=== PATIENT | female | born 1955 | race Caucasian/White ===

== ENCOUNTER 2018-09-27 05:52 | Observation (INO) ==
[2018-09-27] MEDS ORDERED: MORPHINE SULFATE 4 MG/1 ML IVP ONE (06:11)
[2018-09-27] MEDS ORDERED: FAMOTIDINE 20 MG/2 ML VIAL IVP ONE (06:11)
[2018-09-27] MEDS ORDERED: Sodium Chloride 0.9% 1,000 ML PRIMARY IV ONE (06:11)
[2018-09-27] MEDS ORDERED: ONDANSETRON 4 MG/2 ML VIAL IVP ONE ×2 (06:11→11:04)
[2018-09-27 06:55] LABS: BASOPHILS # (AUTO) 0.02 10*3/UL; BASOPHILS % (AUTO) 0.2 % (0-1); EOSINOPHILS # (AUTO) 0.02 10*3/UL; EOSINOPHILS % (AUTO) 0.2 % (0-8); Hematocrit [HCT] 50.6 % (37.0-47.0); Hemoglobin [HGB] 16.9 g/dL (12.0-16.0); LYMPHOCYTES # (AUTO) 1.06 10*3/uL; MEAN CORPUSCULAR HEMOGLOBIN 29.5 PG (27-31); MEAN CORPUSCULAR HGB CONC 33.4 g/dL (33-37); MEAN CORPUSCULAR VOLUME 88.5 FL (81-99); MEAN PLATELET VOLUME 10.1 FL (7.4-12.2); MONOCYTES # (AUTO) 0.31 10*3/UL (0.3-0.8); MONOCYTES % (AUTO) 2.6 % (5-15); NEUTROPHILS # (AUTO) 10.55 10*3/UL; RED BLOOD COUNT 5.72 10^6/uL (4.20-5.40)
[2018-09-27 07:01] LABS: BUN/CREATININE RATIO 17.5 (6-20); SERUM ALBUMIN 4.9 g/dL (3.5-4.8)
[2018-09-27 07:04] LABS: PLATELET MORPHOLOGY COMMENT NORMAL MORPHOLOGY (NORM); RBC MORPHOLOGY COMMENT NORMAL MORPHOLOGY (NORM); WBC MORPHOLOGY COMMENT NORMAL MORPHOLOGY (NORM)
--- NOTE | 2018-09-27 08:12 | DI ---
INDICATION: Abdominal pain TECHNIQUE: Multiple, contiguous axial cuts of the abdomen and pelvis are obtained from the lung bases to the ischial tuberosities before and following the administration of 75 mL Isovue 300 IV contrast. Sagittal and coronal reformatted images are available. COMPARISON: None FINDINGS: The lung bases are clear. There is a small sliding-type hiatal hernia. There is cholelithiasis with mild pericholecystic fat stranding and fluid. The common bile duct is normal in caliber. Low attenuation of liver is consistent with steatosis. The spleen, pancreas, and adrenal glands are unremarkable. The kidneys enhance symmetrically. There is no hydronephrosis or perinephric stranding. Mild aortoiliac atherosclerosis is not associated with aneurysm. There is no adenopathy. The appendix is normal. There is no evidence of bowel obstruction. There is colonic diverticulosis without evidence of acute diverticulitis. Uterus and urinary bladder are unremarkable. There are no acute osseous findings. There is grade 1 anterolisthesis of L4 on L5 secondary to facet arthropathy. IMPRESSION: 1. Cholelithiasis with mild pericholecystic fat stranding and fluid, concerning for acute cholecystitis. Clinical/sonographic correlation is recommended. 2. Colonic diverticulosis without evidence of acute diverticulitis.
[2018-09-27 08:48] LABS: BILIRUBIN,URINE NEGATIVE (NEG); CLARITY,URINE Slightly Cloudy (CLEAR); COLOR,URINE YELLOW (Y); GLUCOSE, URINE (UA) NEGATIVE (NEG); OCCULT BLOOD,URINE Trace-intact (NEG); PH,URINE 8.5 (5.0-8.5); PROTEIN,URINE NEGATIVE (NEG); UROBILINOGEN,URINE 0.2 EU/dL (0.2)
[2018-09-27 09:00] LABS: BACTERIA,URINE FEW; RBC,URINE 0-1 /hpf; SQUAMOUS EPITHELIAL CELL,UR FEW; URINE CASTS MODERATE; URINE SAMPLE TYPE CLEAN CATCH URINE
--- NOTE | 2018-09-27 09:01 | PDOC ---
Abdomen/Flank HPI - General Chief Complaint: Abdomen Pain Stated Complaint: UPPER ABDOMINAL PAIN Date Seen by Provider: 09/27/18 Time Seen by Provider: 06:05 Source: POSITIVE: Patient, Spouse Exam Limitations: POSITIVE: No limitations Nurse's Notes Reviewed & Considered: Yes - History of Present Illness Initial Comments: The patient is a 63-year-old female, who is brought to the emergency room by her . Patient states that around 7 PM she ate a turkey and cheese sandwich with hart and about an hour later developed right upper quadrant abdominal pain. She also had one or 2 episodes of vomiting around 1 AM. Patient has not had any abdominal surgery except for tubal ligation. She thinks that maybe she was running a fever last night, but did not take her temperature. No diarrhea. Patient is on no medications and denies any medical history except having had a surgical procedure on her left knee. Body Location Affected: REPORTS: Abdomen Timing: REPORTS: Abrupt, Improved (Patient states she feels somewhat better now than she did earlier this morning) Duration: <24 hours Severity: Moderate Quality: REPORTS: "Pain" Abdominal Pain Onset Location: REPORTS: RUQ, Epigastric Abdominal Pain Radiation: REPORTS: No radiation Context: REPORTS: Other (Onset one hour after eating). DENIES: None, Activity, Bending, Coughing, Fall, Lifting, Near Fall, Rest, Sitting, Sleep, Standing, Turning, Emotional stress, Camping, Bad Food, Out of Country Travel, Recent Surgery, Recent Trauma Modifying Factors: improves with: Vomiting Associated Symptoms: REPORTS: Nausea Similar Symptoms Previously: No Recent Care Received: REPORTS: Denies Any Prior Injuries Related to Current Complaint?: No - Patient Home Medications Home Medications: Home Medications NK 09/27/18 - Patient Allergies Allergies/Adverse Reactions: Allergies 3 Allergy/AdvReac Type Severity Reaction Status Date / Time No Known Allergies Allergy Verified 09/27/18 05:59 Past Medical History - heen HEENT History: Denies History Cardiovascular History: Denies History Respiratory History: Denies History Gastrointestinal History: Denies History Genitourinary History: Denies History Endocrine History: Denies History Musculoskeletal History: Denies History Prosthesis or Implant: No Neurological History: Denies History Blood Disorders: Denies History Psychiatric History: Denies History History of Sexually Transmitted Diseases: No Female Reproductive History: Tubal Ligation Obstetrical History: Denies History Cancer History: Denies History In Past Year Been Physically Harmed or Verbally Threatened: No History of MDRO: No History of Other Communicable Diseases: No Tobacco Use: Never Smoker Alcohol Use: Rarely In the Past 12 Months, Have Used or Abuse Any Substance: None Previous Surgical History: Yes Type / Date of Surgery: LEFT KNEE POST FRACTURE. TUBAL LIGATION Significant Family History: No pertinent family hx Past Medical History Reviewed: Reviewed - No Changes ROS - Limitations ROS Limitations: No Limitations Constitution: REPORTS: Denies Symptoms Cardiovascular: REPORTS: Denies Cardiac Symptoms Respiratory: REPORTS: Denies Resp Symptoms Neurological: REPORTS: Denies Neuro Symptoms Gastrointestinal: REPORTS: Abdominal Pain, Nausea, Vomitting Endocrine: REPORTS: Denies Symptoms Musculoskeletal: REPORTS: Denies MS Symptoms Genitourinary: REPORTS: Denies Symptoms Eyes: REPORTS: Denies Symptoms ENT: REPORTS: Denies Symptoms Skin: REPORTS: Denies Skin Symptoms Lympathic: REPORTS: Denies Lympathic Symptoms Immunologic: POSITIVE: Denies Symptoms Psychiatric: POSITIVE: Denies Psych Symptoms Abdominal/Flank Pain PE - General Appearance General Appearance: POSITIVE: Alert, Cooperative, No Evidence of Trauma, Mild Distress. NEGATIVE: No Acute Distress - HEENT HEENT: POSITIVE: Head Inspection Nml, Eyes Inspection Nml, Ears Inspection Nml, Nose Inspection Nml, Oral/Dental Inspect. Nml, Pharynx Inspect. Nml, PERRL, EOMI - Neck Neck: POSITIVE: Normal Inspection, No Apparent Injury - Respiratory Respiratory: POSITIVE: No Respiratory Distress, Breath Sounds Normal, Chest Non- Tender - Cardiovascular Cardiovascular: POSITIVE: Regular Rate and Rhythm, Heart Sounds Normal, Equal Pulses, Strong Pulses Peripheral Pulses: Radial (R): 2+, Radial (L): 2+ - Chest Chest: POSITIVE: Non Tender - Abdomen Abdomen: Soft: (All Quadrants), Normal Bowel Sounds: (All Quadrants), Denies Tenderness: (LLQ), (RLQ), (LUQ), No Splenomegaly: (All Quadrants), No Hepatomegaly: (All Quadrants), No Guarding: (All Quadrants), No Rebound: (All Quadrants), No Palpable Pulse: (All Quadrants), No Palpabale Mass: (All Quadrants), No Distention: (All Quadrants), No Rigidity: (All Quadrants), Tenderness Noted: (RUQ) Additional Abdominal Details: Abdominal examination shows bowel sounds to be active. Patient does have some pain on palpation right upper quadrant, without masses, organomegaly or rebound. - Back Back: POSITIVE: Normal Inspection. NEGATIVE: CVA Tenderness (R), CVA Tenderness (L) - Skin Skin: POSITIVE: Intact, Normal For Race, Warm, Dry, No Rash - Extremities Extremity: Non-Tender: (All Extremities), Normal ROM: (All Extremities), Normal Inspection: (All Extremities) - Neurological Neurological: POSITIVE: Affect Apporpriate, Oriented X3, cutter gas Normal As Tested, Motor Normal, Sensation Normal - Psychological Psychiatric: POSITIVE: Affect Appropriate, Mood Appropriate Images - Complete Complete: 1 - Area of described pain Abdomen Progress - Results Reviewed by me Xrays/CTs/US Reviewed by me: Yes Discussed with Radiologist: Yes Radiology Findings: CT scan abdomen and pelvis with IV contrast read as showing cholelithiasis with mild paricholecystic fat stranding and fluid compatible with cholecystitis CBC and BMP: 09/27/18 06:30 09/27/18 06:30 Lab Results:: Laboratory Results 3 09/27/18 09/27/18 06:30 06:30 WBC 11.98 H RBC 5.72 H Hgb 16.9 H Hct 50.6 H MCV 88.5 MCH 29.5 MCHC 33.4 RDW Std Deviation 41.2 RDW Coeff of Fernando 12.7 Plt Count 251 MPV 10.1 Immature Gran % (Auto) 0.2 Neut % (Auto) 88.0 H Lymph % (Auto) 8.8 L Maverick % (Auto) 2.6 L Eos % (Auto) 0.2 Baso % (Auto) 0.2 Immature Gran # (Auto) 0.02 Neut # (Auto) 10.55 Lymph # (Auto) 1.06 Maverick # (Auto) 0.31 Eos # (Auto) 0.02 Baso # (Auto) 0.02 WBC Morphology Comment Normal morphology Plt Morphology Comment Normal morphology RBC Morph Comment Normal morphology Sodium 145 Potassium 4.0 Chloride 107 Carbon Dioxide 30 Anion Gap 8 BUN 21 Creatinine 1.2 Estimated GFR 45 BUN/Creatinine Ratio 17.50 Glucose 143 H Calculated Osmolality 304.0 H Calcium 10.6 Total Bilirubin 1.5 H AST 38 ALT 28 Alkaline Phosphatase 84 Total Protein 8.6 H Albumin 4.9 H Globulin 3.7 Albumin/Globulin Ratio 1.30 Amylase 59 Lipase 225 - Patient's Progress Pain Medication Addressed: POSITIVE: Yes (Morphine sulfate, 4 mg IV) School/Work Release Addressed: POSITIVE: Not Applicable Re-examine Time: 08:30 Re-Examine Comment: Patient hydrated with a liter of normal saline and was given Zofran 4 mg IV for nausea. She was also given 4 mg morphine sulfate for pain and 20 mg of famotidine. Patient states she feels better. Laboratory results and CT scan results discussed with patient. Since we have evidence radiographically of cholecystitis, I did discuss the case with surgeon furnace combustion tester, Dr. Estrella, who will come to the emergency room to further evaluate and treat. Patient kept nothing by mouth pending surgical consultation. Status: POSITIVE: Improved, Re-Examined - Consult Consult (If Yes, Name of Consulting MD & Time Called): Yes (Dr. Estrella, surgeon, [id number]) Consulting MD will see pt:: POSITIVE: In ED Counseled: POSITIVE: Patient, Family, RE: Lab Results, RE: Radiology Results, RE : DX, RE: Need for F/U Patient Care Time - Estimated PCT Patient Care Time (In Minutes): 55 Vital Signs - Recent Vital Signs Vital Signs: Vital Signs (Last 8 hours) Temp Pulse Resp BP Pulse Ox 09/27/18 05:53 97.7 F 110 H 18 171/110 92 - VS Reviewed Vital Signs Reviewed: Yes Discharge Clinical Impression: Abdominal pain, Cholecystitis Discharge Disposition: Other (Care transferred to Dr. Estrella, surgeon, who will evaluate patient in the emergency room) Condition: Stable Follow Up With: NONE,NONE [Primary Care Provider] - Care Transferred To: Dr. Estrella, surgeon, [id number]
[2018-09-27] MEDS ORDERED: Ertapenem Inj 1 GM in Sodium Chloride 0.9% 100 ML IV SCH ×2 (11:00→11:21)
[2018-09-27] MEDS ORDERED: Lactated Ringers 1,000 ML PRIMARY IV SCH ×2 (11:00→11:21)
[2018-09-27] MEDS ORDERED: Nasal Sanitizer POPSWAB ampule 3 AMP (Nozin) PREOP DOSE ENOS SCH ×2 (11:00→11:21)
--- NOTE | 2018-09-27 11:01 | CONSULT ---
Consult Note - Consult Consult Date: 09/27/18 Reason for Consult: PreOp Consulation : General Surgery Requesting Physician: Dr. Shukla Primary Care Provider: NONE NONE - History of Present Illness History of Present Illness: The patient is a 63-year-old female who reports last night about 7 PM she ate a turkey, cheese, and mayonnaise sandwich. At about 8 PM she developed epigastric and right upper quadrant pain. She reports she could feel in her back. The pain persisted. She got nauseated and vomited once about 1 AM. She still had pain this morning and was brought into the emergency room. Lab work shows a slight elevation of her white count. Liver function tests are normal as are amylase and lipase. CT scan shows a gallbladder filled with gallstones and some rhonda-cholecystic stranding and fluid consistent with acute cholecystitis. Her common bile duct is normal. She got some pain medicines and I am asked to see her in consultation. Patient reports she still has the pain. She is definitely more comfortable. She has never had an episode like this. She has heartburn but no history of biliary colic. There is a family history of gallbladder disease. We discussed the options. She is still uncomfortable and would like to definitively treat this. With evidence of acute cholecystitis will proceed with laparoscopic cholecystectomy with intraoperative cholangiogram today. Review of Systems - Gastrointestinal Gastrointestinal / Abdominal: REPORTS: Nausea, Vomiting, Abdominal Pain, Heartburn, See HPI. DENIES: Negative System Review, Diarrhea, Constipation, Bloody Stool, Poor Appetite, Regurgitation, Bloating, Lactose Intolerance, Melena, Bright Red Blood per Rectum, Other Past Medical History Medical History: GERD. No other significant medical problems. Surgical History: Left knee surgery. Tubal ligation. Tobacco Use: Never Smoker In the Past 12 Months, Have Used or Abuse Any of the Following Substance: None Alcohol Use: None Medication / Allergies Home Medications: Home Medications 3 Medication Instructions Recorded Confirmed Type NK 09/27/18 09/27/18 History Allergies/Adverse Reactions: Allergies 3 Allergy/AdvReac Type Severity Reaction Status Date / Time No Known Allergies Allergy Verified 09/27/18 05:59 Results - Labs CBC and BMP: 09/27/18 06:30 09/27/18 06:30 - Imaging Status: Image Reviewed by Me, Report Reviewed by Me Exam - Vitals Vital Signs: Vital Signs Temperature 97.7 F Temperature Source Temporal Artery Scan Pulse Rate [Pulse Oximeter] 110 Respiratory Rate 18 Blood Pressure [Left Arm] 171/110 Pulse Ox 92 Oxygen Delivery Method Room Air Height 5 ft 3 in Weight 175 lb - General General Appearance: Cooperative, Mild Distress - Respiratory Respiratory Exam: POSITIVE: Clear to Auscultation - Bilaterally, Breathing Non Labored - Cardiovascular Cardiovascular Exam: POSITIVE: No Murmur, Tachycardia - GI/Abdominal GI/Abdominal Exam: POSITIVE: Soft, Diminished Bowel Sounds, Positive for RUQ Pain Additional GI/Abdominal Exam Details: Abdomen is moderately obese. There is focal right upper quadrant and epigastric tenderness. No peritoneal signs. Not an acute abdomen. - Rectal Rectal Exam: POSITIVE: Deferred - Neurological Neurological Exam: POSITIVE: Alert, Oriented x 3 - Psychiatric Psychiatric Exam: POSITIVE: Normal Affect, Normal Mood - Integumentary Integumentary Exam: POSITIVE: Normal Color Assessment and Plan - Patient Problems (1) Cholelithiasis and acute cholecystitis without obstruction Current Visit: Yes Status: Acute Priority: High Onset Date: 09/26/18 Comment: With CT findings of acute cholecystitis we'll proceed with laparoscopic cholecystectomy with intraoperative cholangiogram today. The procedure has been discussed with the patient in complete yet simple terms including benefits, risks, and alternatives. All questions have been answered. Informed consent has been obtained. The patient has been given the option of pain medicines and outpatient antibiotics with delayed cholecystectomy but she would like to proceed at this time. I think this is most reasonable approach. We also discussed doing this in the morning but I don't see any benefit to doing that. Code(s): K80.00 - Calculus of gallbladder with acute cholecystitis without obstruction
[2018-09-27] MEDS ORDERED: DEXAMETHASONE PF 10 MG/1 ML VIAL IVP ONE (11:04)
[2018-09-27] MEDS ORDERED: ERTAPENEM 1 GM VIAL ONE (11:06)
[2018-09-27] MEDS ORDERED: Sodium Chloride 0.9% 100 ML IV ONE (11:07)
[2018-09-27] MEDS ORDERED: DEXAMETHASONE PF 10 MG/1 ML VIAL ONE (11:10)
[2018-09-27] MEDS ORDERED: ONDANSETRON 4 MG/2 ML VIAL ONE (11:10)
[2018-09-27] MEDS ORDERED: fentaNYL Inj 250 MCG/5 ML VIAL ONE (11:18)
[2018-09-27] MEDS ORDERED: KETAMINE 100 MG/1 ML - 5 ML ONE (11:18)
[2018-09-27] MEDS ORDERED: MIDAZOLAM 5 MG/1 ML ONE (11:18)
[2018-09-27] MEDS ORDERED: LIDOCAINE MPF 2% - 5 ML (20 MG/1 ML) ONE (11:18)
[2018-09-27] MEDS ORDERED: PROPOFOL 10 MG/1 ML (200 MG/20 ML) VIAL IV ONE (11:18)
[2018-09-27] MEDS ORDERED: ROCURONIUM 10 MG/1 ML - 5 ML VIAL IVP ONE (11:19)
[2018-09-27] MEDS ORDERED: Sodium Chloride 0.9% vial 50 ML ONE (11:28)
[2018-09-27] MEDS ORDERED: Iothalamate Meglumine 30 ML VIAL IV ONE (11:28)
[2018-09-27] MEDS ORDERED: BUPIVACAINE 0.25% W/ EPI - 10 ML VIAL ONE (11:28)
[2018-09-27] MEDS ORDERED: Acetaminophen 1000mg Inj 1,000 MG/100 ML VIAL IV ONE (12:14)
[2018-09-27] MEDS ORDERED: KETOROLAC 30 MG/1 ML VIAL ONE (12:22)
[2018-09-27] MEDS ORDERED: SUGAMMADEX SODIUM 200 MG/2 ML VIAL IV ONE (12:23)
[2018-09-27] MEDS ORDERED: Lactated Ringers 1,000 ML PRIMARY IV ONE (12:25)
[2018-09-27] MEDS ORDERED: HYDROmorphone 2 MG/1 ML ONE (12:55)
--- NOTE | 2018-09-27 13:17 | GEN.OPNOTE ---
Operative Note Surgery Date: 09/27/18 Preoperative Diagnosis: Acute cholecystitis with cholelithiasis. Postoperative Diagnosis: Acute gangrenous cholecystitis with cholelithiasis. Procedure: Laparoscopic cholecystectomy with intraoperative cholangiogram. Surgeon: Jeffrey Estrella MD Cotton Machine Operator: Cory Major MD Anesthesia Provider: Milton Pratt CRNA Anesthesia Type: General Estimated Blood Loss (mL): 10 Fluids: 1400 mL of crystalloid. 1 g of IV Invanz prior to the start of the procedure. 1 g of IV Tylenol at the end of the procedure. 60 mg of IM Toradol at the end of the procedure. Pathology: Specimen to pathology. Indications: Right upper quadrant tenderness with CT scan showing changes of acute cholecystitis and cholelithiasis. Mildly elevated white count. Findings: Acute gangrenous cholecystitis with cholelithiasis. Intraoperative cholangiogram showed a normal sized duct with a normal distal tapering and free flow into the duodenum. There was a normal branching pattern. There were no filling defects. No other intra-abdominal pathology identified. Complications: None. Operative Summary: The patient was taken to the operating room and placed on the operating table in the supine position. Following induction of general anesthetic the abdomen was prepped and draped in a sterile fashion. A surgical timeout was done. The infraumbilical region was infiltrated with 1/4% Marcaine with epinephrine. An incision was made. The abdominal wall was elevated. A Veres needle was placed without apparent injury and a pneumoperitoneum was induced. The veres needle was withdrawn. A 10 mm trocar was placed without apparent injury and a laparoscope was inserted. Under direct visualization and following Marcaine injection a 10 mm trocar was placed in the epigastrium and 2x5 mm trochars were placed along the costal margin. The gallbladder was encased in omentum. It was peeled off both sharply and bluntly. The gallbladder was tense. It was decompressed. The gallbladder was acutely inflamed and gangrenous. The gallbladder was grasped and elevated. Blunt dissection was used to free the cystic duct. A clip was placed along the neck of the gallbladder. A hole was made in the side wall of the cystic duct. A Noe cholangiocatheter was inserted. Intraoperative cholangiogram was taken and was normal as previously dictated. The Noe catheter was withdrawn. 2 clips were placed on the distal cystic duct and the duct was divided. The cystic artery was isolated. 2 clips were placed proximally and one distally and the artery was divided. The gallbladder was taken from the hepatic bed using electrocautery. Hemostasis was assured. Appropriate irrigation and suctioning were performed. Final check for hemostasis was made. 5 mL of Marcaine was placed in the gallbladder fossa and 5 over the dome of the liver. The gallbladder was placed in an Endopouch. The laparoscope was moved to the epigastric port. The gallbladder was grasped with a large grasper and brought up to the umbilical trocar site. The incision and the fascial defect at the umbilicus were increased in size to allow removal of this enlarged gallbladder with multiple stones. The gallbladder was brought out through the trocar site without difficulty. The fascial defect at the umbilicus was closed with a running 0 Vicryl. A final check for hemostasis was made. The CO2 was burped from the abdominal cavity. The trochars were removed under direct visualization. No other trocar sites required fascial closure. The skin wounds were closed with inverted interrupted or running subcuticular 4-0 Monocryl followed by Mastisol Steri- Strips and an appropriate dressing. Patient tolerated the procedure well without complication. Patient was taken to the recovery room in stable condition. All counts were correct. Patient Problems - Patient Problem List (1) Cholelithiasis and acute cholecystitis without obstruction Current Visit: Yes Status: Acute Onset Date: 09/26/18 Priority: High Code(s): K80.00 - Calculus of gallbladder with acute cholecystitis without obstruction Category: Medical
--- NOTE | 2018-09-27 13:37 | CRNA.PROGR ---
Anesthesia Recovery Phase I - Post Anesthesia Evaluation Pain Level: 0
[2018-09-27] MEDS ORDERED: Prochlorperazine Edisylate Inj 10mg/2ml vial IVP PRN (13:39)
[2018-09-27] MEDS ORDERED: HYDROmorphone 2 MG/1 ML IVP PRN (13:39)
[2018-09-27] MEDS ORDERED: LIDOCAINE W/ SODIUM BICARB 0.5 ML SYR SUBD PRN (13:39)
--- NOTE | 2018-09-27 13:39 | CRNA.PROGR ---
Anesthesia Time - Procedure/Recovery Time Start Date: 09/27/18 End Date: 09/27/18 Anesthesia : Time In: 11:43 Anesthesia : Time Out: 13:29 Anesthesia : Total Time: 106 - Total Anesthesia Time Total Anesthesia Time (minutes): 106 - Other Weight: 79.379 kg Height: 5 ft 3 in Body Mass Index (BMI): 30.9 Physical Status: P2 (accute cholelithiasis) Anesthesia Type: General Anesthesia : ET
[2018-09-27] MEDS ORDERED: MORPHINE SULFATE 2 MG/1 ML IVP PRN (14:06)
[2018-09-27] MEDS ORDERED: ONDANSETRON 4 MG/2 ML VIAL IVP PRN (14:06)
[2018-09-27] MEDS ORDERED: [UNRECOGNIZED DRUG - OTHER] IM ONE (15:08)
[2018-09-27] MEDS ORDERED: Influenza 18-19 Vaccine (6mo+) 60 MCG/0.5 ML SYRINGE IM ONE (15:47)
[2018-09-27] MEDS: HYDROcodone-APAP 5 MG -325 MG TABLET PO PRN ×2 (15:48→20:33)
[2018-09-27] MEDS: Lactated Ringers 1,000 ML PRIMARY IV SCH (15:50)
[2018-09-27] MEDS: KETOROLAC 15 MG/1 ML VIAL IVP SCH (18:42)
[2018-09-27] MEDS: DOCUSATE 100 MG CAPSULE PO SCH (20:33)
[2018-09-28] MEDS: Lactated Ringers 1,000 ML PRIMARY IV SCH (00:11)
[2018-09-28] MEDS: KETOROLAC 15 MG/1 ML VIAL IVP SCH ×2 (00:43→06:52)
[2018-09-28 04:54] VITALS: O2SAT 92
[2018-09-28 05:12] LABS: BASOPHILS # (AUTO) 0.01 10*3/UL; BASOPHILS % (AUTO) 0.1 % (0-1); EOSINOPHILS # (AUTO) 0 10*3/UL; EOSINOPHILS % (AUTO) 0 % (0-8); Hematocrit [HCT] 44.8 % (37.0-47.0); Hemoglobin [HGB] 14.4 g/dL (12.0-16.0); LYMPHOCYTES # (AUTO) 1.13 10*3/uL; MEAN CORPUSCULAR HEMOGLOBIN 29.4 PG (27-31); MEAN CORPUSCULAR HGB CONC 32.1 g/dL (33-37); MEAN CORPUSCULAR VOLUME 91.4 FL (81-99); MEAN PLATELET VOLUME 10.5 FL (7.4-12.2); MONOCYTES # (AUTO) 0.97 10*3/UL (0.3-0.8); MONOCYTES % (AUTO) 6.8 % (5-15); NEUTROPHILS # (AUTO) 12.18 10*3/UL; NEUTROPHILS % (AUTO) 85.1 % (50-80)
[2018-09-28 05:20] LABS: SERUM ALBUMIN 4.1 g/dL (3.5-4.8)
[2018-09-28 05:26] LABS: PLATELET MORPHOLOGY COMMENT NORMAL MORPHOLOGY (NORM); RBC MORPHOLOGY COMMENT NORMAL MORPHOLOGY (NORM); WBC MORPHOLOGY COMMENT NORMAL MORPHOLOGY (NORM)
[2018-09-28] MEDS: HYDROcodone-APAP 5 MG -325 MG TABLET PO PRN ×2 (06:53→11:41)
[2018-09-28 07:04] VITALS: BP 140/81; RESP 18; TEMP 97.5
--- NOTE | 2018-09-28 07:04 | CRNA.PROGR ---
Anesthesia Note - Progress Notes Anesthesia Progress Note: Post OP Anesthesia Note Pt is sitting up at bed side waiting for breakfast. She has been up ambulating , to the rest room, has had a little to eat. Tolerating eating well. she states that her pain is well under control. She denies any residual problems of general anesthesia. Current VS are stable. Vital Signs - Last Taken Temperature 97.5 F 09/28/18 07:01 Pulse Rate 79 09/28/18 07:01 Respiratory Rate 18 09/28/18 07:01 Blood Pressure 140/81 09/28/18 07:01 Pulse Ox 92 09/28/18 07:01
--- NOTE | 2018-09-28 08:09 | DI ---
XR CHOLANGIOGRAM INTRAOP,09/27/2018 11:22 AM: Clinical History: Status post cholecystectomy. Previous Exam: None at this facility. Findings: An intraoperative cholangiogram is performed demonstrating a large common bile duct with a string sig n involving the distal common bile duct approximately 1 cm from the second portion of the duodenum. There is no definite filling defect identified within the common bile duct only the presence of a str icture in the distal common bile duct. The intrahepatic ducts appear within normal limits. Impression: Straightening sign involving the distal common bile duct without evidence of definite stone. Consider MRCP or ERCP for further evaluation.
[2018-09-28] MEDS: DOCUSATE 100 MG CAPSULE PO SCH (08:23)
[2018-09-28] MEDS ORDERED: Ertapenem Inj 1 GM in Sodium Chloride 0.9% 100 ML IV SCH (11:00)
--- NOTE | 2018-09-28 11:00 | DCSUMMARY ---
Discharge Summary Admit Date: 09/27/18 Discharge Date: 09/28/18 Admitting Diagnosis: acute cholecystitis with cholelithiasis Discharge Diagnosis: Acute cholecystitis with cholelithiasis Primary Surgery and Date: Status post laparoscopic cholecystectomy with intraoperative cholangiogram on 09/27/2018. Hospital Course: The patient was admitted with acute cholecystitis on the . She underwent a laparoscopic cholecystectomy with intraoperative cholangiogram. She had a gangrenous gallbladder. The surgery went very well. The patient is doing remarkably well. She is tolerating a diet. She is ambulatory. She is passing gas. She has no nausea or vomiting. Her pain is well controlled. Her white count was slightly up at 14,600. She is afebrile. We will discharge her home on antibiotics and pain medicines for outpatient follow-up. I discussed the surgical findings again with the patient and her family. Exam - Vitals Vital Signs: Vital Signs Temperature 97.5 F Temperature Source Temporal Artery Scan Pulse Rate [Pulse Oximeter] 79 Pulse Rate 96 Respiratory Rate 18 Blood Pressure [Right Arm] 140/81 Blood Pressure [Left Arm] 113/73 Blood Pressure 135/78 Pulse Ox 92 Oxygen Flow Rate 1 Oxygen Delivery Method Room Air Height 5 ft 3 in Weight 179 lb 4.8 oz - General General Appearance: No Acute Distress, Cooperative - Respiratory Respiratory Exam: POSITIVE: Clear to Auscultation - Bilaterally, Breathing Non Labored - Cardiovascular Cardiovascular Exam: POSITIVE: RRR, No Murmur - GI/Abdominal GI/Abdominal Exam: POSITIVE: Normal Bowel Sounds, Non Distended, Soft Additional GI/Abdominal Exam Details: The abdomen is soft. The dressings are clean, dry, and intact. There is some incisional tenderness only. Tenderness is also superficial. - Neurological Neurological Exam: POSITIVE: Alert, Oriented x 3 - Psychiatric Psychiatric Exam: POSITIVE: Normal Affect, Normal Mood Data Peritnent Studies: 09/27/2018-CT scan showing acute cholecystitis and cholelithiasis. Procedures: 09/27/2018-laparoscopic cholecystectomy with intraoperative cholangiogram. Patient Problems - Patient Problem List (1) Cholelithiasis and acute cholecystitis without obstruction Current Visit: Yes Status: Acute Onset Date: 09/26/18 Priority: High Comment: Status post laparoscopic cholecystectomy with intraoperative cholangiogram. Doing very well. Home on oral antibiotics and pain medications. Code(s): K80.00 - Calculus of gallbladder with acute cholecystitis without obstruction Category: Medical
== END 2018-09-28 13:13 | disposition home or self-care (01) ==
LOC: ER 05:52 → OR 11:04 → MED/SURG 13:59 → INTOOBSV 13:59
PROVIDERS: ADMIT Surgery; ATTEND Surgery